=== PATIENT | female | born 1950 | race Caucasian/White ===

== ENCOUNTER 2016-03-14 18:51 | Inpatient (IN) ==
[2016-03-14] MEDS ORDERED: NS 1,000 ML IV ONE (18:59)
[2016-03-14] MEDS ORDERED: ZOFRAN IV ONE (18:59)
[2016-03-14 19:23] LABS: MANUAL DIFF NEEDED? NO
[2016-03-14 19:26] LABS: BASO% 0.4 % (0.0-0.8); EOS# 0.11 X1000 (0.0-0.7); EOS% 0.8 % (0.0-10.0); HEMATOCRIT 39.8 % (37.0-47.0); IMM GRAN# 0.05 X1000 (0.0-0.04); IMM GRAN% 0.4 % (0.0-0.5); LYMPH# 2.64 X1000 (1.2-3.4); LYMPH% 18.7 % (20.5-51.1); MCH 29.4 PG (27-31); MCHC 35.2 g/dL (33-37); MCV 83.4 FL (81-99); MONO# 0.67 X1000 (0.11-0.59); MONO% 4.8 % (1.7-9.3); MPV 11.5 FL (7.4-10.4); NEUT% 74.9 % (42.2-75.2); PLT 361 X1000 (130-400); RBC 4.77 XMIL (4.2-5.4)
[2016-03-14] MEDS ORDERED: NS 1,200 ML IV ONE (19:53)
[2016-03-14] MEDS ORDERED: INVANZ 1 GM/NS 50 ML IV ONE (19:54)
--- NOTE | 2016-03-14 19:57 | PROVIDER DOCUMENTATION ---
HPI-Fever - General Source: patient - History of Present Illness-Fever Fever Severity/Quality: reports: no fever Onset/Duration: reports: this morning Timing: reports: still present Severity: reports: severe Context: reports: none Cognitive Baseline: alert, oriented x3 Associated Symptoms: reports: diarrhea, nausea, vomiting - Glascow Coma Score Best Eye Response (Rik): (4) open spontaneously Best Verbal Response (Rik): (5) oriented Best Motor Response (Rik): (6) obeys commands [place] Total: 15 <Louisa Lopez - Last Filed: 03/15/16 00:17> <Vineet Webb - Last Filed: 03/15/16 00:20> - General Chief Complaint: N/V/D Stated Complaint: epigastric pain w n/v Time Seen by Provider: 03/14/16 18:55 Allergies/Adverse Reactions: Patient Allergies Allergy/AdvReac Type Severity Reaction Status Date / Time cyclobenzaprine HCl * Allergy Mild NAUSEA Verified 09/02/15 07:52 [From Flexeril] morphine Allergy Mild VOMITING Verified 09/02/15 07:52 Home Medications: Oxycodone HCl/Acetaminophen [Percocet 7.5-325 mg Tablet] 1 each PO 4XDAY PRN PRN 07/21/14 Ergocalciferol (Vitamin D2) [Vitamin D] 1 each PO DIRECTED 09/02/15 Furosemide [Lasix] 20 mg PO DAILY 09/02/15 Gemfibrozil [Lopid] 600 mg PO BID 09/02/15 Glyburide 5 mg PO DAILY 09/02/15 Insulin Lispro [Humalog] 20 unit SQ TID AC 09/02/15 Linagliptin [Tradjenta] 5 mg PO DAILY 09/02/15 Metoprolol [Lopressor] 25 mg PO DAILY 09/02/15 [place]-3 Acid Ethyl Esters [Lovaza] 2 each PO BID 09/02/15 SIMVAstatin [Zocor] 40 mg PO QHS 09/02/15 Insulin Glargine [Lantus] 20 unit SUBQ QAM 09/24/15 - History of Present Illness-Fever Nature of Presenting Problem: 65 Y/O F presents to ED with N/V/D. Pt states she has a history of abdominal problems, Pt states she's been having this abdominal pain for 2 wks and has worsen today. Vomiting began this evening, and Pt states she took Miralax this evening, but she does take it everyday due to constipation. Pt stated that she had a hysterectomy, and removed her gallbladder, and her last meal was an ensure this morning. (Louisa Lopez) Review of Systems - Adult - REVIEW OF SYSTEMS - ADULT Constitutional: denies: chills, fever Eyes: reports: no symptoms reported Ears, Nose, Mouth & Throat: reports: no symptoms reported Cardiovascular: reports: no symptoms reported Respiratory: reports: no symptoms reported Gastrointestinal: reports: abdominal pain, diarrhea, nausea, vomiting Genitourinary: reports: no symptoms reported Musculoskeletal: reports: no symptoms reported Integumentary: reports: no symptoms reported Neurological: reports: no symptoms reported Psychiatric: reports: no symptoms reported Endocrine: reports: no symptoms reported Hematologic/Lymphatic: reports: no symptoms reported Allergic/Immunologic: reports: no symptoms reported All Other Systems: Reviewed and Negative <Louisa Lopez - Last Filed: 03/15/16 00:17> Past History - Adult - PAST MEDICAL HISTORY-ADULT Review of Records: reports: Old Records Reviewed, Nursing Assessment Review, Medications Reviewed, Social history reviewed & non-contributory. Major Childhood Illnesses: reports: denies history Cardiovascular: reports: HTN, hyperlipidemia Respiratory: reports: denies history Gastrointestinal: reports: denies history Obstetrical/Gynecological: reports: denies history Genitourinary: reports: kidney disease Musculoskeletal: reports: chronic pain Neurological: reports: denies history Psychiatric: reports: denies history Endocrine/Immune: reports: Diabetes Other Conditions: reports: denies history - PRIOR SURGERIES/PROCEDURES Surgical/Procedure History: reports: appendectomy, cholecystectomy, hysterectomy , orthopedic (extremity) - PRIOR HOSPITALIZATIONS Prior Hospitalizations: reports: for similar symptoms - IMMUNIZATION STATUS Childhood Immunizations: See Nurse Assessment Flu Vaccine: See Nurse Assessment - FAMILY HISTORY Family History: reviewed, not pertinent - SOCIAL HISTORY Smoking: non-smoker Substance Use: none/never Alcohol Use Frequency: never Living Situation: family <Louisa Lopez - Last Filed: 03/15/16 00:17> Physical Exam-General - PHYSICAL EXAM-ADULT Initial Vital Signs Reviewed: Yes - CONSTITUTIONAL General Appearance: alert, moderate distress. negative: appears well - EYES Eyes: PERRL/EOMI, pink conjunctivae - HEAD, EARS, NOSE, MOUTH & THROAT HENMT: normocephalic/atraumatic, normal ENT inspection. negative: moist mucous membranes - NECK Neck: non-tender, full range of motion, normal inspection - RESPIRATORY Respiratory: chest non-tender, lungs clear, normal breath sounds - CARDIOVASCULAR Cardiovascular: normal peripheral pulses, no edema, tachycardia - GASTROINTESTINAL (ABDOMEN) Abdominal Exam: normal bowel sounds, soft, tenderness (diffused). negative: guarding, rebound - LYMPHATIC Lymphatic: no adenopathy - MUSCULOSKELETAL Back Exam: normal inspection, no CVA tenderness, no vertebral tenderness Extremity: normal range of motion, non-tender, normal gait - SKIN Integumentary: normal color, normal turgor, warm/dry - NEUROLOGIC Neurologic: grossly normal, no motor/sensory deficits - PSYCHIATRIC Psych/Mental Status: oriented x 3, anxious, disheveled <Louisa Lopez - Last Filed: 03/15/16 00:17> Progress - CT/MRI 1 CT Study: Abdomen Impression: Abnormal (Prominent liver which displaces right kidney inferiorly, no bowel obstruction, extensive diverticulosis at descending and sigmoid colon, no evidence of diverticulitis, no abscess, no free air.) - CONSULTS/PCP/HOSPITALIST Notification #1 *Consult/PCP/Hospitalist*: Time Discussed: 00:17 Reason/Comments: Admittance Consult Disposition: Admit (Admit Accepted) <Louisa Lopez - Last Filed: 03/15/16 00:17> - CONSULTS/PCP/HOSPITALIST Notification #1 *Consult/PCP/Hospitalist*: Dr. H[facility] Time Discussed: 00:20 Consult Disposition: Admit <Vineet Webb - Last Filed: 03/15/16 00:20> - PLAN OF CARE/RESULTS Progress/Plan/Lab Results: On original examination, Pt stated that she did not want to be examined, to go away. Laboratory Tests 03/14/16 03/14/16 03/14/16 19:14 19:14 19:14 WBC 14.10 H RBC 4.77 Hgb 14.0 Hct 39.8 MCV 83.4 MCH 29.4 MCHC 35.2 RDW Std Deviation 12.8 Plt Count 361 MPV 11.5 H Immature Gran % (Auto) 0.4 Neut % (Auto) 74.9 Lymph % (Auto) 18.7 L [place] % (Auto) 4.8 Eos % (Auto) 0.8 Baso % (Auto) 0.4 Immature Gran # (Auto) 0.05 H Neut # 10.58 H Lymph # 2.64 [place] # 0.67 H Eos # 0.11 Baso # 0.05 PT INR APTT (Factor Assay) Sodium 136 Potassium 3.5 Chloride 94 L Carbon Dioxide 27 Anion Gap 16 BUN 16 Creatinine 0.7 Estimated GFR/1.73 m2 > 60 BUN/Creatinine Ratio 23 Glucose 325 H Calculated Osmolality 286 Calcium 10.3 H Total Bilirubin 0.50 AST 17 ALT 18 Alkaline Phosphatase 119 H Creatine Kinase Troponin T < 0.010 Total Protein 8.2 Albumin 4.7 Globulin 4.0 Albumin/Globulin Ratio 1.0 Lipase 24 Plasma Lactate Urine Source Urine Color Urine Clarity Urine pH Ur Specific [place] Urine Protein Urine Ketones Urine Blood Urine Nitrite Urine Bilirubin Urine Urobilinogen Urine Microscopic RBC Urine WBC Urine Microscopic WBC Ur Epithelial Cells Urine Crystals Urine Bacteria Urine Casts Urine Yeast Urine Glucose Urine Test 03/14/16 03/14/16 03/14/16 19:14 19:14 19:14 WBC RBC Hgb Hct MCV MCH MCHC RDW Std Deviation Plt Count MPV Immature Gran % (Auto) Neut % (Auto) Lymph % (Auto) [place] % (Auto) Eos % (Auto) Baso % (Auto) Immature Gran # (Auto) Neut # Lymph # [place] # Eos # Baso # PT 13.1 INR 0.96 APTT (Factor Assay) 25.7 Sodium Potassium Chloride Carbon Dioxide Anion Gap BUN Creatinine Estimated GFR/1.73 m2 BUN/Creatinine Ratio Glucose Calculated Osmolality Calcium Total Bilirubin AST ALT Alkaline Phosphatase Creatine Kinase 43 Troponin T Total Protein Albumin Globulin Albumin/Globulin Ratio Lipase Plasma Lactate 3.6 H Urine Source Urine Color Urine Clarity Urine pH Ur Specific [place] Urine Protein Urine Ketones Urine Blood Urine Nitrite Urine Bilirubin Urine Urobilinogen Urine Microscopic RBC Urine WBC Urine Microscopic WBC Ur Epithelial Cells Urine Crystals Urine Bacteria Urine Casts Urine Yeast Urine Glucose Urine Test 03/14/16 03/14/16 20:40 20:40 WBC RBC Hgb Hct MCV MCH MCHC RDW Std Deviation Plt Count MPV Immature Gran % (Auto) Neut % (Auto) Lymph % (Auto) [place] % (Auto) Eos % (Auto) Baso % (Auto) Immature Gran # (Auto) Neut # Lymph # [place] # Eos # Baso # PT INR APTT (Factor Assay) Sodium Potassium Chloride Carbon Dioxide Anion Gap BUN Creatinine Estimated GFR/1.73 m2 BUN/Creatinine Ratio Glucose Calculated Osmolality Calcium Total Bilirubin AST ALT Alkaline Phosphatase Creatine Kinase Troponin T Total Protein Albumin Globulin Albumin/Globulin Ratio Lipase Plasma Lactate Urine Source CATH Urine Color YELLOW Urine Clarity CLEAR Urine pH 7.0 Ur Specific [place] 1.005 Urine Protein 2+(100 mg/dL) A Urine Ketones TRACE Urine Blood NEGATIVE Urine Nitrite NEGATIVE Urine Bilirubin NEGATIVE Urine Urobilinogen NORMAL Urine Microscopic RBC Not Reportable Urine WBC NEGATIVE Urine Microscopic WBC <10 Ur Epithelial Cells <10 Urine Crystals NONE SEEN Urine Bacteria NEGATIVE Urine Casts NONE SEEN Urine Yeast NONE SEEN Urine Glucose 3+(500 mg/dL) A Urine Test NEGATIVE Orders Category Date Time Status Cardiac Monitoring DIRECTED Care 03/14/16 19:01 Active Saline Loc DIRECTED Care 03/14/16 18:59 Active NPO Diet 03/14/16 18:[address] ABD/PELVIS W/ IV CONT ONLY [CT] Stat Exams 03/14/16 19:53 Taken acute [FLAT/UPRIGHT ABD/1 VIEW CHEST] [RAD] Stat Exams 03/14/16 19:00 Taken BLOOD CULTURE [BLDCUL] Stat Lab 03/14/16 21:11 Or[address] C DIFF TOXIN PL Stat Lab 03/14/16 22:42 Ordered CBC WITH ELECTRONIC DIFF [HEME] Stat Lab 03/14/16 19:14 Completed CK PROFILE [SP CHEM] Stat Lab 03/14/16 19:14 Completed COMPREHENSIVE METABOLIC PANEL [CHEM] Stat Lab 03/14/16 19:14 Completed LACTATE, PLASMA [CHEM] Stat Lab 03/14/16 19:14 Completed LIPASE [CHEM] Stat Lab 03/14/16 19:14 Completed TEST-URINE [PREG] Stat Lab 03/14/16 20:40 Completed PROTIME WITH INR PL [COAG] Stat Lab 03/14/16 19:[address] [COAG] Stat Lab 03/14/16 19:14 Completed TROPONIN T Stat Lab 03/14/16 19:[address] W/POSS RFLX CULT [URINALYSIS] Stat Lab 03/14/16 20:40 Completed 0.9% Sodium Chloride Inj [Ns] 1,000 ml Med 03/14/16 18:59 Discontinued IV 999 mls/hr 0.9% Sodium Chloride Inj [Ns] 1,200 ml Med 03/14/16 19:53 Discontinued IV 999 mls/hr 0.9% Sodium Chloride Inj [Ns] 50 ml Med 03/14/16 20:11 Discontinued .ROUTE As Directed Ertapenem 1 gm/Ns [Invanz 1 gm/Ns] 50 ml Med 03/14/16 19:54 Discontinued IV NOW Ertapenem [Invanz] Med 03/14/16 20:09 Discontinued 1 gm .ROUTE .STK-MED ONE Hydromorphone [Dilaudid] Med 03/14/16 21:36 Discontinued 1 mg IV NOW ONE Hyoscyamine Subl [Levsin-Sl] Med 03/14/16 23:57 Discontinued 0.25 mg SL NOW ONE Meperidine [Demerol] Med 03/14/16 22:54 Discontinued 50 mg IV NOW ONE Ondansetron [Zofran] Med 03/14/16 18:59 Discontinued 4 mg IV NOW ONE Oxycodone/APAP 10 mg/325 mg [Percocet-10] Med 03/14/16 21:58 Discontinued 1 each PO NOW ONE Promethazine [Phenergan] Med 03/15/16 00:13 Discontinued 12.5 mg IV NOW ONE Sodium Chloride 0.9% Med 03/15/16 00:13 Discontinued 10 ml INJ NOW ONE Oxygen Device Stat Oth 03/14/16 19:55 Active EKG [EKG] Stat Ther 03/14/16 18:40 Ordered Vital Signs - 24 hr 03/14/16 03/14/16 03/14/16 18:52 21:13 21:18 Temperature 97.8 F Pulse Rate 119 H 115 H Respiratory 20 14 Rate Blood Pressure 190/90 219/109 O2 Sat by Pulse 100 96 Oximetry (Louisa Lopez) Departure - Departure Time of Disposition Order: 22:42 Certified Medical Emergency: Emergent <Louisa Lopez - Last Filed: 03/15/16 00:17> - Departure Certified Medical Emergency: Emergent <Vineet Webb - Last Filed: 03/15/16 00:20> - Departure DIAGNOSIS: Dehydration, Lactic acidosis Nausea & vomiting Qualifiers: Vomiting type: unspecified Vomiting Intractability: intractable Qualified Code( s): R11.2 - Nausea with vomiting, unspecified Abdominal pain Qualifiers: Abdominal location: generalized Qualified Code(s): R10.84 - Generalized abdominal pain Disposition: ADMITTED INPATIENT 09 Condition: Stable Referrals: JANET WRIGHT CRNP [Primary Care Provider] - Attestation - Scribe Verification/Attestation Scribe:: Louisa Lopez Acting as Scribe for:: Vineet Webb Scribe documention review:: This chart was documented by a scribe and accurately reflects the service the provider performed and the decisions made by the provider. <Louisa Lopez - Last Filed: 03/15/16 00:17> Physician Attestation
[2016-03-14 19:59] LABS: AGAP 16; ALBUMIN 4.7 g/dL (3.5-5.0); ALKALINE PHOSPHATASE 119 U/L (32-104); BUN 16 mg/dL (8-22); CALCIUM 10.3 mg/dL (8.8-10.2); CHLORIDE 94 mmol/L (98-107); COSMO 286; GOT 17 U/L (10-30); GPT 18 U/L (10-36); LIPASE 24 U/L (13-60); POTASSIUM 3.5 mmol/L (3.5-5.1); SODIUM 136 mmol/L (136-145); TCO2 27 mmol/L (25-35); TOTAL PROTEIN 8.2 g/dL (6.3-8.3)
[2016-03-14] MEDS ORDERED: INVANZ ONE (20:09)
[2016-03-14] MEDS ORDERED: NS 50 ML ONE (20:11)
[2016-03-14 20:57] LABS: URINE CULTURE PL NEEDED? NO; URINE SOURCE CATH
[2016-03-14 21:15] LABS: COLOR YELLOW
[2016-03-14 21:16] LABS: BILIRUBIN URINE NEGATIVE (NEGATIVE); BLOOD URINE NEGATIVE (NEGATIVE); CLARITY CLEAR (CLEAR); LEUKOCYTES URINE NEGATIVE (NEGATIVE); NITRITE URINE NEGATIVE (NEGATIVE); PROTEIN URINE 2+(100 mg/dL) mg/dL (NEGATIVE); SP GRAVITY URINE 1.005; UROBILINOGEN URINE NORMAL
[2016-03-14 21:17] LABS: URINE EPITHELIAL CELLS <10 /HPF (<10); URINE WBC <10 /HPF (<10)
[2016-03-14 21:18] LABS: URINE CAST NONE SEEN /LPF; URINE CRYSTAL NONE SEEN /HPF
[2016-03-14 21:24] LABS: INR 0.96 (0.86-1.15); PROTIME 13.1 Seconds (12.1-15.5)
[2016-03-14 21:25] LABS: PTT PL 25.7 Seconds (22.6-43.9)
[2016-03-14] MEDS ORDERED: DILAUDID IV ONE (21:36)
[2016-03-14] MEDS ORDERED: PERCOCET-10 PO ONE (21:58)
[2016-03-14] MEDS ORDERED: DEMEROL IV ONE (22:54)
[2016-03-14] MEDS ORDERED: LEVSIN-SL SL ONE (23:57)
[2016-03-15] MEDS ORDERED: SODIUM CHLORIDE 0.9% INJ ONE ×2 (00:13→01:55)
[2016-03-15] MEDS ORDERED: PHENERGAN IV ONE (00:13)
[2016-03-15] MEDS ORDERED: PERCOCET-5 PO PRN (01:21)
[2016-03-15] MEDS ORDERED: PROTONIX IV ONE (01:55)
[2016-03-15] MEDS: ZOFRAN IV PRN ×4 (02:03→16:17)
[2016-03-15] MEDS: NS 1,000 ML IV SCH ×3 (02:05→21:07)
--- NOTE | 2016-03-15 03:22 | EKG Report ---
Test Performed on : 03/14/2016 6:46:11 PM Test Reason : ER7 Blood Pressure : / mmHG Vent. Rate : 111 BPM Atrial Rate : 111 BPM P-R Int : 182 ms QRS Dur : 074 ms QT Int : 360 ms P-R-T Axes : 054 042 058 degrees QTc Int : 489 ms Sinus tachycardia. Otherwise normal ECG No previous ECGs available Unconfirmed Result
[2016-03-15] MEDS: APRESOLINE IV PRN (05:21)
[2016-03-15] MEDS: SODIUM CHLORIDE 0.9% INJ PRN (05:21)
[2016-03-15] MEDS: PHENERGAN IV PRN ×5 (05:21→21:07)
[2016-03-15] MEDS: DEMEROL IV PRN ×6 (05:21→22:33)
--- NOTE | 2016-03-15 08:19 | Diag Imaging Result Document ---
PROCEDURE NAME: CT ABD/PELVIS W/ IV CONT ONLY - 03/14/2016 CT ABDOMEN AND PELVIS WITH INTRAVENOUS CONTRAST: A CT dose reduction protocol was used. COMPARISON: 10/11/2015. FINDINGS: The lung bases are clear and the heart size is normal. Stable left renal stone. Stable cyst at the anterior pole of the spleen. Stable cholecystectomy clips. Stable surgical changes throughout the spine. Stable diverticulosis of the descending and sigmoid colon. No bowel obstruction or inflammation. There has been significant change in configuration of the right kidney, this is now horizontally oriented as compared to previous. No evidence of hydronephrosis or vascular compromise. Uterus is absent. Urinary bladder and rectum are normal. No acute bony lesions. IMPRESSION: 1. Significant change in orientation of the right kidney, with no evidence of complication. This indicates nephroptosis is present. If the patient's symptoms may be referable to this location, then urologic referral is recommended. 2. Diverticulosis coli. [facility]
--- NOTE | 2016-03-15 08:24 | Diag Imaging Result Document ---
PROCEDURE NAME: FLAT/UPRIGHT ABD/1 VIEW CHEST - 03/14/2016 FRONTAL CHEST X-RAY AND 2 VIEWS OF THE ABDOMEN: COMPARISON: 10/11/2015. FINDINGS: The chest is clear. There is a lower cervical spine fusion plate. Stable fusion rods at the lumbar spine and cholecystectomy clips. Stable calcifications projecting over the left renal shadow suggesting left renal stones. No bowel obstruction or free air. There is dense material throughout the distal colon and rectum. There are probably diverticula. IMPRESSION: Diverticulosis coli. Left renal stone. No acute abnormality.
--- NOTE | 2016-03-15 17:10 | HISTORY AND PHYSICAL ---
CHIEF COMPLAINT: Diarrhea, nausea, vomiting, abdominal pain. HISTORY OF PRESENT ILLNESS: This is a 65-year-old female, who presented to the emergency room complaining of nausea, vomiting and diarrhea. She does state that she has a history of chronic abdominal pain as well as chronic constipation secondary to narcotic use. She states she has been having abdominal pain that has been intermittent off and on for the last 2 weeks, but that over the last 48 hours it has become worse. The pain is primarily in the right flank around to the right lower quadrant over to the umbilical area. She is tender to palpation. She does not really have any left abdominal pain. She is on chronic narcotics. She is seen by Dr. Sinclair for pain management. She has recently been changed to Percocet after failing Dilaudid due to a reaction, although she does not remember what kind of reaction she had. Prior to coming to the emergency room, she thinks it had been between 24 and 48 hours that she had held down her last dose of Percocet. She was noted to have a white count of 14.1. She was afebrile. CT of the abdomen and pelvis revealed a stable left renal stone, stable cyst anterior pole of the spleen. Stable diverticulosis with nephroptosis of the right kidney being horizontal, as compared to a 10/11/2015 scan. There is no evidence of hydronephrosis or vascular compromise. She is being admitted for further evaluation and treatment. PAST MEDICAL HISTORY: Type 2 diabetes, hypertension, renal disease, chronic pain. PAST SURGICAL HISTORY: Appendectomy, cholecystectomy, hysterectomy. Six or 7 back fusions. Bladder surgery. SOCIAL HISTORY: She denies alcohol, tobacco, or illicit drug use. ALLERGIES: Flexeril, Dilaudid and morphine. HOME MEDICATIONS: Lyrica 75 mg b.i.d., methocarbamol 750 q.4 hours p.r.n., trazodone 1-2 tabs at bedtime p.r.n. Allopurinol 300 daily. Zanaflex 4 mg b.i.d. p.r.n., Paxil 30 mg daily. Hydroxyzine 1-2 tabs at bedtime p.r.n., niacin 500 mg at bedtime, Movantik 25 mg daily, Lopid 600 b.i.d., Tradjenta 5 daily, Prilosec 40 daily, Zocor 40 at bedtime. REVIEW OF SYSTEMS: A 14-point review of systems is discussed with the patient with pertinent positives being right flank pain, right-sided abdominal pain, right lower quadrant pain, vomiting, nausea. She denies chest pain, palpitations, syncope, dizziness, cough, fever, chills, runny nose, hematemesis, black or bloody stools, hematuria, dysuria, frequency, urgency. PHYSICAL EXAMINATION: GENERAL: This is a 65-year-old female, lying in the bed in mild distress. CARDIOVASCULAR: Regular rate and rhythm. S1 and S2 appreciated. PULMONARY: Breath sounds are clear. No increased work of breathing noted. GASTROINTESTINAL: Abdomen is soft with diffuse tenderness to the right upper and lower quadrants and umbilical quadrant. Bowel sounds are present. BACK: Positive CVAT on the right. No left CVAT. SKIN: Warm and dry with no rashes or lesions noted. EXTREMITIES: No clubbing, cyanosis, or edema. Pulses are palpable x4. Calves are nontender. DIAGNOSTIC STUDIES: CT of the abdomen reveals nephroptosis on the right as compared to September scan. WBC is 14.1, with a hemoglobin of 14 and hematocrit 39.8, platelets of 361. INR 0.96. Sodium 136, potassium 3.5, BUN 16, creatinine 0.7 with a glucose of 325. Troponin is less than 0.010 with lipase of 24. Blood cultures x2 are pending. ASSESSMENT: 1. Nausea and vomiting. 2. Right flank, right side abdominal pain. 3. Leukocytosis. 4. Nephroptosis on the right. 5. Diabetes mellitus. 6. Hypertension. 7. Chronic pain disorder. PLAN: Patient will be admitted to the hospital. She will remain n.p.o. We will give IV hydration as well as IV pain and nausea control. We will trend labs. We will consult urology with Dr. Jeter who is personal care aid. We will obtain patient's records. The patient is on chronic opiates. She did state this has probably been about 24 hours since she held down a pain pill, but she has been receiving Demerol q.4 hours since admission so I do not believe that withdrawal is a component of this. We will give IV Protonix. We will trend pattern blood glucose with sliding scale insulin. Further treatments pending hospital course. Dictated by AMISHA Salazar for Charles Hare MD
[2016-03-15 17:30] LABS: MANUAL DIFF NEEDED? NO
[2016-03-15 17:31] LABS: BASO% 0.1 % (0.0-0.8); HEMATOCRIT 36.5 % (37.0-47.0); HEMOGLOBIN 12.9 g/dL (12.0-16.0); IMM GRAN# 0.03 X1000 (0.0-0.04); IMM GRAN% 0.2 % (0.0-0.5); LYMPH# 1.34 X1000 (1.2-3.4); LYMPH% 8.6 % (20.5-51.1); MCH 29.5 PG (27-31); MCHC 35.3 g/dL (33-37); MCV 83.5 FL (81-99); MONO# 1.09 X1000 (0.11-0.59); MPV 11.1 FL (7.4-10.4); NEUT% 84.1 % (42.2-75.2); PLT 328 X1000 (130-400); RBC 4.37 XMIL (4.2-5.4)
[2016-03-15] MEDS: ZOSYN 3.375 GM/NS 50 ML IV SCH ×3 (17:39→23:00)
[2016-03-15] MEDS: PROTONIX IV SCH (17:40)
[2016-03-15 17:58] LABS: AGAP 13; ALBUMIN 4.6 g/dL (3.5-5.0); ALKALINE PHOSPHATASE 108 U/L (32-104); BUN 14 mg/dL (8-22); CALCIUM 9.4 mg/dL (8.8-10.2); CHLORIDE 100 mmol/L (98-107); COSMO 291; GOT 15 U/L (10-30); GPT 16 U/L (10-36); POTASSIUM 3.2 mmol/L (3.5-5.1); SODIUM 142 mmol/L (136-145); TCO2 29 mmol/L (25-35); TOTAL PROTEIN 8.1 g/dL (6.3-8.3)
[2016-03-15] MEDS: HUMULIN R (PARKWAY) SUBQ SCH (21:08)
[2016-03-15] MEDS: AMBIEN PO PRN (22:33)
[2016-03-16] MEDS: NS 1,000 ML IV SCH ×5 (01:19→21:13)
[2016-03-16] MEDS: PHENERGAN IV PRN ×5 (03:21→21:11)
[2016-03-16] MEDS: DEMEROL IV PRN ×5 (03:21→21:12)
[2016-03-16] MEDS: SODIUM CHLORIDE 0.9% INJ SCH ×2 (03:21→21:13)
[2016-03-16] MEDS: ZOSYN 3.375 GM/NS 50 ML IV SCH ×5 (04:26→23:25)
[2016-03-16] MEDS: HUMULIN R (PARKWAY) SUBQ SCH ×4 (06:02→21:13)
[2016-03-16 06:05] LABS: HEMATOCRIT 35.3 % (37.0-47.0); MCH 28.7 PG (27-31); MCV 84.4 FL (81-99); MPV 11.3 FL (7.4-10.4); RBC 4.18 XMIL (4.2-5.4)
[2016-03-16] MEDS: ZOFRAN IV PRN ×3 (06:06→19:15)
[2016-03-16] MEDS: TORADOL IV PRN ×2 (06:06→14:29)
[2016-03-16 06:19] LABS: AGAP 9; BUN 15 mg/dL (8-22); CALCIUM 9.1 mg/dL (8.8-10.2); CHLORIDE 102 mmol/L (98-107); COSMO 288; POTASSIUM 2.8 mmol/L (3.5-5.1); SODIUM 141 mmol/L (136-145); TCO2 30 mmol/L (25-35)
[2016-03-16] MEDS: APRESOLINE IV PRN ×2 (07:41→17:01)
[2016-03-16 11:06] LABS: MAGNESIUM 1.1 mg/dL (1.5-2.7)
--- NOTE | 2016-03-16 11:08 | PROGRESS NOTE ---
DATE: 03/16/2016 SUBJECTIVE: The patient is asleep at present. She is resting quietly. She has continued to have nausea. Vomiting small amounts of bile-colored secretions. OBJECTIVE: Vital Signs: Blood pressure 206/99 with heart rate of 98. Respirations are 18. Temperature is 98.4 degrees with room air saturation of 100%. Cardiovascular: Regular rate and rhythm. S1 and S2 appreciated. Pulmonary: Breath sounds are clear. No increased work of breathing noted. Gastrointestinal: Abdomen is soft with diffuse tenderness with bowel sounds present. Extremities: No clubbing, cyanosis, or edema. Pulses are palpable x4. LABORATORY AND X-RAY DATA: WBC is 13.3 with a hemoglobin of 12, hematocrit 35.3 , and platelets of 288,000. Sodium is 141. Potassium 2.8. BUN 15. Creatinine 0.7 with blood sugars ranging 180 to 230. CTA angiogram mesenteric artery is pending radiology read. ASSESSMENT AND PLAN: 1. Nausea and vomiting. 2. Right flank pain, abdominal pain. 3. Leukocytosis. 4. Hypokalemia. 5. Diabetes mellitus. 6. Hypertension. 7. Chronic pain. 8. Nephroptosis on the right. We will continue with her current regimen. She will remain NPO. We will continue with the current pain and nausea medications. We will obtain a reading on the mesenteric CT scan. We will continue Zosyn for antibiotic coverage. Protonix for GI coverage and. Dictated by AMISHA Salazar for Charles Hare MD due to persistent n/v; will transfer [facility], start regaln, ischemic gut has been ruled out, I am suspicious of a psychiatric component, but pt did have lactic acidosis on admission [facility]
[2016-03-16] MEDS: POTASSIUM CHLORIDE 20 MEQ/SWI 100 ML IV SCH ×3 (12:00→15:10)
[2016-03-16] MEDS ORDERED: MAGNESIUM SULFATE 2 GM/S.W.I. 50 ML IV ONE (16:20)
[2016-03-16] MEDS: SODIUM CHLORIDE 0.9% INJ PRN (17:01)
[2016-03-16] MEDS: PROTONIX IV SCH (17:07)
[2016-03-16] MEDS: REGLAN IV SCH (17:08)
--- NOTE | 2016-03-16 17:26 | Diag Imaging Result Document ---
PROCEDURE NAME: ANGIOGRAM/MESENTERIC ARTERY - 03/15/2016 CT OF THE ABDOMEN WITH INTRAVENOUS CONTRAST AND CT MESENTERIC ANGIOGRAPHY WITH 3D MIPs: COMPARISON: The current study is compared with that of 03/14/2016. FINDINGS: The lungs are not as well expanded as on the previous study. Compared to the previous examination, the orientation of the right kidney is more vertical. It is possible that this is a function of the stage of inspiration at which the study was performed. The study of 03/14/2016 was performed at a much deeper inspiration. The renal vessels are widely patent. The celiac and superior mesenteric arteries are also widely patent. The inferior mesenteric artery is patent. There is a Johnson catheter in the bladder, which is not distended and contains air bubbles within it. There are numerous fecaliths and diverticula in the sigmoid colon. There is no evidence of appendicitis or bowel obstruction. No abnormal fluid collections are present. IMPRESSION: No significant arterial abnormality. The change in orientation of the right kidney is apparently a function of the depth of inspiration. This would be consistent with nephroptosis, but the clinical significance is unclear.
[2016-03-16] MEDS: POTASSIUM PHOSPHATE 40 MEQ in NS 250 ML IV ONE (21:00)
[2016-03-17] MEDS: DEMEROL IV PRN ×4 (00:50→18:19)
[2016-03-17] MEDS: POTASSIUM PHOSPHATE 40 MEQ in NS 250 ML IV ONE (00:50)
[2016-03-17] MEDS: NS 1,000 ML IV SCH ×2 (00:50→09:07)
[2016-03-17] MEDS: PHENERGAN IV PRN ×4 (00:51→18:19)
[2016-03-17] MEDS: SODIUM CHLORIDE 0.9% INJ SCH ×2 (00:51→05:27)
[2016-03-17] MEDS: REGLAN IV SCH ×4 (00:51→23:56)
[2016-03-17] MEDS: TORADOL IV PRN (05:27)
[2016-03-17] MEDS: ZOSYN 3.375 GM/NS 50 ML IV SCH ×3 (05:27→16:52)
[2016-03-17] MEDS: HUMULIN R (PARKWAY) SUBQ SCH ×4 (06:17→20:31)
[2016-03-17 07:04] LABS: HEMATOCRIT 33.1 % (37.0-47.0); MCH 28.5 PG (27-31); MCHC 33.2 g/dL (33-37); MCV 85.8 FL (81-99); MPV 11.2 FL (7.4-10.4); RBC 3.86 XMIL (4.2-5.4)
[2016-03-17 07:24] LABS: AGAP 9; ALBUMIN 3.7 g/dL (3.5-5.0); ALKALINE PHOSPHATASE 79 U/L (32-104); BUN 18 mg/dL (8-22); CALCIUM 8.6 mg/dL (8.8-10.2); CHLORIDE 103 mmol/L (98-107); COSMO 284; GOT 27 U/L (10-30); GPT 19 U/L (10-36); MAGNESIUM 2.1 mg/dL (1.5-2.7); SODIUM 140 mmol/L (136-145); TCO2 28 mmol/L (25-35); TOTAL PROTEIN 6.5 g/dL (6.3-8.3)
[2016-03-17] MEDS ORDERED: G.I. COCKTAIL PO ONE (12:26)
[2016-03-17] MEDS: CARAFATE LIQUID PO SCH ×2 (14:39→20:31)
[2016-03-17] MEDS: PROTONIX IV SCH (15:56)
--- NOTE | 2016-03-17 17:37 | PROGRESS NOTE ---
DATE: 03/17/2016 SUBJECTIVE: The patient is asleep resting quietly although upon waking she starts crying and asking for pain medication. She has had no further vomiting. OBJECTIVE: Vital Signs: Blood pressure is 167/81 with a heart rate of 77, respirations are 18, temperature is 98.6 degrees oral with a room air saturation of 96%. Cardiovascular: Regular rate and rhythm S1, S2 appreciated. Pulmonary: Breath sounds are clear. No increased work of breathing noted. Gastrointestinal: Abdomen is soft with no tenderness on deep palpation while she is asleep but when she is awake she complains of tenderness with any palpation. Extremities: No clubbing, cyanosis, or edema. Pulses are palpable x4. LABS: WBC is 10.2 with hemoglobin 11, hematocrit 33.1 and platelets 284,000. Sodium is 140, potassium 3, BUN 18, creatinine 0.8, with blood sugars ranging 140s to 200. Mesenteric arteriogram revealed no significant arterial abnormality with change in orientation the right kidney is a function of depth of inspiration consistent with nephroptosis. Microbiology. Blood cultures and urine culture revealed no growth. PROBLEM LIST: 1. Nausea and vomiting. 2. Right flank pain, abdominal pain. 3. Leukocytosis resolving. 4. Hypokalemia. 5. Diabetes mellitus. 6. Hypertension. 7. Chronic pain. 8. Nephroptosis on the right. We will continue with her current regimen. Her diet will be increased to full liquids. The patient was given a GI cocktail. Her pain did improve shortly after taking this. Will start Carafate liquid q.6 hours and will order a GI cocktail every 6 hours p.r.n. for 24 hours and will monitor her pain. We will work on her getting up out of the bed. Dictated by AMISHA Salazar for Charles Hare MD
[2016-03-17] MEDS ORDERED: NS 1,000 ML IV SCH (17:41)
[2016-03-17] MEDS: POTASSIUM CHLORIDE 20 MEQ/SWI 100 ML IV SCH ×2 (18:20→20:30)
[2016-03-17] MEDS: G.I. COCKTAIL PO PRN (20:31)
[2016-03-17] MEDS: AMBIEN PO PRN (20:35)
[2016-03-18] MEDS: PHENERGAN IV PRN ×3 (02:28→14:51)
[2016-03-18] MEDS: SODIUM CHLORIDE 0.9% INJ PRN ×2 (02:28→06:39)
[2016-03-18] MEDS: DEMEROL IV PRN ×3 (02:28→23:03)
[2016-03-18] MEDS: CARAFATE LIQUID PO SCH ×3 (02:33→14:51)
[2016-03-18] MEDS: G.I. COCKTAIL PO PRN ×2 (05:18→15:29)
[2016-03-18] MEDS: HUMULIN R (PARKWAY) SUBQ SCH ×3 (06:38→16:57)
[2016-03-18 06:55] LABS: HEMATOCRIT 36.3 % (37.0-47.0); HEMOGLOBIN 12.6 g/dL (12.0-16.0); MCH 29.2 PG (27-31); MCHC 34.7 g/dL (33-37); MPV 10.8 FL (7.4-10.4); RBC 4.32 XMIL (4.2-5.4)
[2016-03-18 07:18] LABS: AGAP 12; BUN 16 mg/dL (8-22); CALCIUM 9.1 mg/dL (8.8-10.2); CHLORIDE 100 mmol/L (98-107); COSMO 279; POTASSIUM 3.2 mmol/L (3.5-5.1); SODIUM 137 mmol/L (136-145); TCO2 25 mmol/L (25-35)
[2016-03-18] MEDS: REGLAN IV SCH ×2 (08:00→15:47)
[2016-03-18] MEDS: TORADOL IV PRN ×2 (08:11→14:51)
--- NOTE | 2016-03-18 13:42 | PROGRESS NOTE ---
DATE: 03/18/2016 SUBJECTIVE: The patient has no complaining of abdominal pain, nausea, or vomiting. OBJECTIVE: Vital Signs: Blood pressure 186/79, heart rate of 89, respiratory rate 16, temperature 98.1 degrees, 97% on room air. Cardiovascular: Regular rate and rhythm. Pulmonary: Bilateral breath sounds. Clear to auscultation. GI: Soft, nontender, nondistended. Bowel sounds are positive. Extremities: No clubbing or cyanosis. Lymphatics: No peripheral edema. Neurological: Nonfocal. LABORATORY DATA: White count 10, hemoglobin and hematocrit 12 and 36, platelets of 286,000. Potassium 3.2. PROBLEM LIST: 1. Intractable nausea and vomiting without a clear source. At this point, I think she needs a GI opinion. Discussed the case with Would like to rule out gastroparesis, so we will pursue gastric emptying study in the morning. It is unavailable because of the holiday at this time. 2. Transfer to [facility] for further evaluation. May need EGD to evaluate for process. 3. Diabetes, appears to be well controlled. 4. Blood pressure, does not appear to be well controlled, and she is not tolerating her p.o. very well, so we will initiate some blood pressure medications and follow closely. 5. Diabetes. Will continue to monitor. DISPOSITION: Pending resolution of her clinical issues.
--- NOTE | 2016-03-18 13:48 | Diag Imaging Result Document ---
PROCEDURE NAME: HEAD W/O CONTRAST - 03/18/2016 CT OF THE HEAD WITHOUT CONTRAST: FINDINGS: There is no evidence of mass effect, bleed or abnormal extraaxial fluid collection. Compared to the previous study of 09/23/2015, there has been no significant change in the appearance of the brain. IMPRESSION: No evidence of acute intracranial disease. Chronic microvascular white matter changes.
[2016-03-18] MEDS ORDERED: VASOTEC IV SCH (14:00)
[2016-03-18] MEDS: POTASSIUM CHLORIDE 20 MEQ/SWI 100 ML IV SCH ×2 (14:51→17:30)
[2016-03-18] MEDS ORDERED: DEMEROL IV PRN (15:18)
[2016-03-18] MEDS: PROTONIX IV SCH (15:47)
[2016-03-18] MEDS: APRESOLINE IV PRN (16:58)
[2016-03-18] MEDS ORDERED: DEMEROL IV ONE (17:04)
[2016-03-18] MEDS ORDERED: DESYREL PO PRN (19:52)
[2016-03-18] MEDS ORDERED: ROBAXIN PO SCH (19:52)
[2016-03-18] MEDS ORDERED: NEURONTIN PO SCH (19:52)
[2016-03-18] MEDS ORDERED: G.I. COCKTAIL PO PRN (20:40)
[2016-03-18] MEDS ORDERED: TORADOL IV PRN (20:50)
[2016-03-18] MEDS ORDERED: LYRICA PO SCH (21:00)
[2016-03-18] MEDS: ROBAXIN PO SCH (22:42)
[2016-03-18] MEDS: AMBIEN PO PRN (22:43)
[2016-03-18] MEDS: LYRICA PO SCH (22:43)
[2016-03-18] MEDS: HUMULIN R SUBQ SCH (22:47)
[2016-03-18] MEDS: ZOFRAN IV PRN (23:01)
[2016-03-19] MEDS: ROBAXIN PO SCH ×6 (00:03→20:49)
[2016-03-19] MEDS: PHENERGAN IV PRN ×3 (00:05→20:48)
[2016-03-19] MEDS: CARAFATE LIQUID PO SCH ×4 (02:58→20:48)
[2016-03-19] MEDS: HUMULIN R SUBQ SCH ×4 (06:33→20:42)
[2016-03-19 06:44] LABS: HEMATOCRIT 31.3 % (37.0-47.0); HEMOGLOBIN 10.7 g/dL (12.0-16.0); MCH 29.3 PG (27-31); MCHC 34.2 g/dL (33-37); MCV 85.8 FL (81-99); MPV 10.6 FL (7.4-10.4); RBC 3.65 XMIL (4.2-5.4)
[2016-03-19] MEDS: MOVANTIK PO SCH (07:00)
[2016-03-19] MEDS: DEMEROL IV PRN ×3 (07:00→19:15)
[2016-03-19] MEDS ORDERED: MOVANTIK PO SCH (07:00)
[2016-03-19] MEDS: VASOTEC IV SCH ×2 (07:02→17:42)
[2016-03-19 07:16] LABS: AGAP 14; BUN 19 mg/dL (8-22); CALCIUM 8.8 mg/dL (8.8-10.2); CHLORIDE 100 mmol/L (98-107); COSMO 281; POTASSIUM 3.3 mmol/L (3.5-5.1); SODIUM 138 mmol/L (136-145); TCO2 24 mmol/L (25-35)
[2016-03-19] MEDS ORDERED: PROZAC PO SCH ×2 (09:00)
[2016-03-19] MEDS: NEURONTIN PO SCH ×3 (09:03→17:39)
[2016-03-19] MEDS: POTASSIUM CHLORIDE 20 MEQ/SWI 100 ML IV SCH ×2 (13:04→15:55)
[2016-03-19] MEDS: LYRICA PO SCH ×2 (13:05→20:50)
[2016-03-19] MEDS: PROZAC PO SCH ×2 (13:05→13:06)
--- NOTE | 2016-03-19 14:10 | Diag Imaging Result Document ---
PROCEDURE NAME: GASTRIC EMPTYING - 03/19/2016 GASTRIC EMPTYING EXAM: COMPARISON: None. FINDINGS: 530 uCi of labeled solid food was ingested. The T-1/2 of gastric emptying is 134 minutes. This is moderately delayed. IMPRESSION: Moderately delayed gastric emptying rate compatible with gastroparesis.
[2016-03-19] MEDS: SODIUM CHLORIDE 0.9% INJ PRN ×2 (15:56→20:48)
--- NOTE | 2016-03-19 16:40 | PROGRESS NOTE ---
DATE: 03/19/2016 SUBJECTIVE: Patient is complaining of mild abdominal pain, and nausea, and vomiting after she tried some clear liquid diet. OBJECTIVE: Vital Signs: Temperature 98.1 degrees, heart rate 86, respiratory rate 16, blood pressure 171/68, O2 saturation 95% on room air. General Examination: This is a chronically ill- looking, 65-year-old female lying in bed, in no acute distress. HEENT: Head is normocephalic and atraumatic. Anicteric sclerae and pale conjunctivae. Mucous membranes moist. Neck: Supple. No JVD noted. No carotid bruit. No lymphadenopathy. No thyromegaly. Cardiovascular: S1, S2 heard. No murmurs, gallops, or rubs. Regular rate and rhythm. Respiratory: Clear bilaterally to auscultation. No work of breathing or using accessory muscles. Abdomen: Soft, mildly tender to palpation in the epigastric area. Bowel sounds present. No organomegaly. Extremities: No clubbing, cyanosis, or edema. Peripheral pulses present in both legs. Neurological: Patient alert and oriented x3. Moves all 4 extremities. LABORATORY DATA: White cell count 9.12, hemoglobin 10.7, hematocrit 31.3, platelets 242,000. BMP unremarkable except mild hypokalemia at 3.3. ASSESSMENT AND PLAN: 1. Intractable nausea and vomiting. The patient had a gastric emptying study which confirmed this mild gastroparesis. Patient currently is receiving Phenergan and ondansetron. At this time, I am going to stop Zofran and start Reglan before meals and also at bedtime. The patient just after coming from a gastric emptying study started to try some liquid diet but she is really hurting a lot. Gastroenterology has been consulted, so they will plan to do an endoscopy while this patient is here in the hospital. 2. For diabetes and high blood pressure, the condition has been controlled and we will continue with the same management.
[2016-03-19] MEDS: SODIUM CHLORIDE 0.9% INJ SCH (17:41)
[2016-03-19] MEDS: PROTONIX IV SCH (17:41)
[2016-03-19] MEDS: NS 1,000 ML IV SCH (17:49)
[2016-03-19] MEDS: ZOFRAN IV PRN ×2 (17:57→23:59)
[2016-03-19] MEDS ORDERED: DEMEROL IV PRN (18:46)
[2016-03-19] MEDS: REGLAN IV SCH ×2 (19:16→23:57)
[2016-03-19] MEDS: AMBIEN PO PRN (20:50)
[2016-03-19] MEDS: APRESOLINE IV PRN (20:51)
--- NOTE | 2016-03-19 23:33 | CONSULTATION ---
DATE OF CONSULTATION: 03/19/2016 REFERRING PHYSICIAN: Charles Hare MD PRIMARY PROVIDER: Jacqueline Infante, nurse practitioner. INDICATION FOR CONSULTATION: 1. Nausea with vomiting. 2. Abdominal pain. 3. Leukocytosis. HISTORY OF PRESENT ILLNESS: The patient is a 65-year-old white female who presented to [facility] on 03/15/2016 with intractable nausea with vomiting, right lower quadrant pain and diarrhea. She now describes diffuse abdominal pain, nausea with vomiting and diarrhea. She notes a history of chronic constipation but is concerned because she is having increased stool frequency. She had similar presentations on 09/28/2012 and 09/03/2015. In 2012 she was found to have a resistant urinary tract infection. She notes that the symptoms improved after she received treatment. In August 2015 she was thought to have had a reaction to [place] as well as recurrence of urinary tract infection. It should be noted that the patient presented with diarrhea but her CT scan showed constipation with a fecal impaction on 09/23/2015. The patient states that she was discharged home feeling better. However approximately 3 weeks later she had the same symptoms, presented to the emergency room with right lower quadrant, right flank pain. Her CT scan showed interval improvement in constipation with no acute abdominal disease. She was discharged to home. She states that she continued to have symptoms but they have become progressively worse to the point that she "couldn't stand it anymore." She presented to the emergency room on 03/15/2016. This time her CT scan reveals a significant change in the orientation of her right kidney such that was horizontal as opposed to vertical consistent with the diagnosis of nephroptosis. In addition, there was diverticulosis. Of note, her lactate level was elevated as was her white blood cell count. On CT angio she had no evidence of acute disease. Clinically over the last 3 days she has failed to improve with Protonix, Reglan and a GI cocktail. After discussing the case with Dr. Hare, a gastric emptying study was ordered. It showed mild gastroparesis even while the patient was receiving IV Reglan. We are asked to participate in her care. PAST MEDICAL HISTORY: 1. Diabetes. 2. Hypertension. 3. Hyperlipidemia. 4. Hypothyroidism. 5. GERD. 6. Peripheral neuropathy. 7. Chronic pain. 8. Constipation. 9. Chronic narcotic use. PAST SURGICAL HISTORY: 1. Back surgeries x7. 2. Neck surgery x2. 3. Cholecystectomy. 4. Hysterectomy. 5. Bilateral oophorectomy. 6. Appendectomy. 7. Bladder surgery. SOCIAL HISTORY: She denies alcohol, tobacco or illicit drug use. She reports that she only takes pain medicines that have been prescribed. MEDICATION ALLERGIES: 1. FLEXERIL. 2. DILAUDID. 3. MORPHINE. HOME MEDICATIONS: 1. Lyrica. 2. Methocarbamol. 3. Trazodone. 4. Allopurinol. 5. Zanaflex. 6. Paxil. 7. Hydroxyzine. 8. Niacin. 9. Movantik. 10. Lopid. 11. Tradjenta. 12. Prilosec. 13. Zocor. REVIEW OF SYSTEMS: Remarkable for right-sided abdominal pain primarily in the right flank that radiates into the right lower quadrant, nausea with vomiting and increased stool frequency. She denies melena and hematochezia. She reports that her pain is a crampy spasm-like pain that is gnawing and constant. It increases immediately prior to defecation. Post defecation there is a temporary relief with immediate recurrence. FAMILY HISTORY: Remarkable that her father had coronary artery disease and possible myocardial infarction in his 50s. He from lung cancer at age 63. She has a sister with ovarian cancer. One brother of myocardial infarction at 34. One brother of lung cancer at 38. Her mother at 80 secondary to intracranial bleed. PHYSICAL EXAM: General: She is an ill-appearing white female who was actively regurgitating into a bedside tub. Vital signs: Her blood pressure is 212/109, pulse of 108, respiration 19, temperature of 98.2 degrees. HEENT: Notable for pale conjunctivae. Her sclerae are anicteric. Oropharyngeal mucosal membranes are moist. Pulmonary: Lungs are clear to auscultation with normal expiratory effort. Cardiovascular Exam: Reveals a tachycardia with a regular rhythm. Abdominal Exam: Reveals normoactive bowel sounds. The abdomen is soft but diffusely tender greatest in the right upper and lower abdomen. There is no rebound or guarding. Extremities: Bilaterally are negative for cyanosis, clubbing, or edema. OBJECTIVE DATA: Reveals a hemoglobin of 10.1 with hematocrit of 31.3 and a white count of 9.12. She has 242,000 platelets. Sodium is 138, potassium 3.3, chloride 100, CO2 24, BUN 19, creatinine 0.8 with a glucose of 155. Calcium is 8.8. On 03/17/2016 her total bilirubin was 0.50, AST 27, ALT 19, alkaline phosphatase 79, phosphorus 3.1, total protein 6.5 and albumin 3.7. On 03/15/2016 her plasma lactate reached a level of 3.8. IMPRESSION: 1. Abdominal pain. 2. Nephroptosis. 3. Gastroparesis. 4. Nausea with vomiting. 5. Diarrhea. 6. Known GERD. 7. Chronic narcotic use. RECOMMENDATION: 1. From a GI perspective, I recommend beginning with a trial of Bentyl 10 mg 4 times a day. 2. Continue Protonix 40 mg once daily. However, if the vomiting persists she may require increasing the dose to 40 mg twice a day. 3. I agree with a trial of Carafate suspension to see if that will improve her symptoms. 4. She may benefit from erythromycin 125 mg for before meals and at bedtime. This is to treat her presumed gastroparesis. 5. I recommend Urology consult with in the morning. 6. I would discontinue Movantik and give a trial of Linzess pending endoscopic evaluation. 7. Additional recommendations to follow. 8. Please note I did not discuss endoscopy with the patient as she had just received pain medications. I will discuss endoscopic intervention with her on 03/20/2016.
[2016-03-20] MEDS: CARAFATE LIQUID PO SCH ×4 (01:36→23:47)
[2016-03-20] MEDS: ROBAXIN PO SCH ×6 (01:37→23:47)
[2016-03-20] MEDS: BENTYL PO SCH ×5 (01:37→23:47)
[2016-03-20] MEDS: DESYREL PO PRN (01:43)
[2016-03-20] MEDS: SODIUM CHLORIDE 0.9% INJ PRN ×3 (01:46→14:01)
[2016-03-20] MEDS: PHENERGAN IV PRN ×3 (01:46→13:58)
[2016-03-20] MEDS: VASOTEC IV SCH ×2 (03:07→17:42)
[2016-03-20] MEDS: DEMEROL IV PRN ×5 (04:30→19:13)
[2016-03-20] MEDS: ZOFRAN IV PRN ×3 (04:30→19:13)
[2016-03-20] MEDS: HUMULIN R SUBQ SCH ×4 (06:20→23:41)
[2016-03-20] MEDS: NS 1,000 ML IV SCH ×3 (06:22→23:39)
[2016-03-20] MEDS: REGLAN IV SCH ×4 (06:24→23:47)
[2016-03-20] MEDS: MOVANTIK PO SCH (06:26)
[2016-03-20] MEDS: PROZAC PO SCH ×2 (08:27)
[2016-03-20] MEDS: LYRICA PO SCH ×2 (08:27→23:47)
[2016-03-20] MEDS: NEURONTIN PO SCH ×3 (08:27→17:43)
[2016-03-20] MEDS: APRESOLINE IV PRN (08:28)
[2016-03-20 09:03] LABS: MANUAL DIFF NEEDED? NO
[2016-03-20 09:05] LABS: BASO% 0.1 % (0.0-0.8); EOS# 0.04 X1000 (0.0-0.7); EOS% 0.4 % (0.0-10.0); HEMATOCRIT 35.2 % (37.0-47.0); HEMOGLOBIN 12.5 g/dL (12.0-16.0); IMM GRAN# 0.12 X1000 (0.0-0.04); IMM GRAN% 1.1 % (0.0-0.5); LYMPH# 1.96 X1000 (1.2-3.4); LYMPH% 17.3 % (20.5-51.1); MCH 29.6 PG (27-31); MCHC 35.5 g/dL (33-37); MCV 83.4 FL (81-99); MONO# 0.81 X1000 (0.11-0.59); MONO% 7.2 % (1.7-9.3); MPV 10.4 FL (7.4-10.4); NEUT% 73.9 % (42.2-75.2); PLT 284 X1000 (130-400); RBC 4.22 XMIL (4.2-5.4)
[2016-03-20 09:18] LABS: AGAP 17; BUN 12 mg/dL (8-22); CALCIUM 8.9 mg/dL (8.8-10.2); CHLORIDE 98 mmol/L (98-107); COSMO 278; POTASSIUM 3.2 mmol/L (3.5-5.1); SODIUM 138 mmol/L (136-145); TCO2 23 mmol/L (25-35)
--- NOTE | 2016-03-20 10:50 | PROGRESS NOTE ---
DATE: 03/20/2016 SUBJECTIVE: Patient reports still having some abdominal pain in the epigastric area. She also is feeling sick. She is still NPO. OBJECTIVE: Vital Signs: Temperature 98.7 degrees. Heart rate 103. Respiratory rate 22. Blood pressure 186/100. O2 saturation 96% on room air. General Examination: This is a chronically ill- looking, 65-year-old female lying in bed, in no acute distress. HEENT: Head is normocephalic, atraumatic. Anicteric sclerae and pale conjunctivae. Mucous membranes dry. Neck: Supple. No JVD noted. No carotid bruits. No lymphadenopathy. No thyromegaly. Cardiovascular: S1, S2 heard. No murmurs, gallops, or rubs. Regular rate and rhythm. Respiratory: Clear bilaterally to auscultation. No work of breathing or using accessory muscles. Abdomen: Soft. Diffuse tenderness to palpation in all the abdomen. There are no signs of peritoneal irritation. Bowel sounds present and hyperactive. Extremities: No clubbing, cyanosis, or edema. Peripheral pulses present in both legs. Neurological: Patient alert and oriented x3, able to move all 4 extremities. Cranial nerves 2-12 grossly normal. LABORATORY DATA: White cell count 11.32. Hemoglobin 12.5. Hematocrit 35.2. Platelets 284,000. BMP unremarkable except mild hypokalemia at 3.3. ASSESSMENT AND PLAN: 1. Intractable nausea, vomiting. The patient had gastric emptying studies done that show some gastroparesis and she was started yesterday on Reglan 5 mg q.6 hours. Patient still feeling sick since yesterday after she tried to get some liquids . The patient has been evaluated by Dr. Morales and she is going to get an upper endoscopy tomorrow. We will follow recommendations. 2. Diabetes mellitus type 2. We will continue with sliding scale insulin. 3. Hypertension. We have added amlodipine 10 mg 1 tablet p.o. daily to her current treatment because blood pressure is kind of high, in the range of 180 and 190.
[2016-03-20] MEDS ORDERED: GOLYTELY PO ONE (14:00)
[2016-03-20] MEDS: NORVASC PO SCH (14:01)
[2016-03-20] MEDS: PROTONIX IV SCH (17:11)
[2016-03-20] MEDS: SODIUM CHLORIDE 0.9% INJ SCH (17:11)
[2016-03-21] MEDS: AMBIEN PO PRN ×2 (00:33→20:27)
[2016-03-21] MEDS: ZOFRAN IV PRN ×3 (00:46→20:20)
[2016-03-21] MEDS: DEMEROL IV PRN ×3 (01:34→17:42)
[2016-03-21] MEDS: ROBAXIN PO SCH ×6 (01:35→20:19)
[2016-03-21] MEDS: CARAFATE LIQUID PO SCH ×4 (04:10→20:19)
[2016-03-21] MEDS: VASOTEC IV SCH ×2 (04:11→15:15)
[2016-03-21 06:39] LABS: MANUAL DIFF NEEDED? NO
[2016-03-21] MEDS: REGLAN IV SCH ×3 (06:49→17:47)
[2016-03-21] MEDS: NS 1,000 ML IV SCH ×2 (06:51→15:04)
[2016-03-21] MEDS: MOVANTIK PO SCH (06:51)
[2016-03-21] MEDS: HUMULIN R SUBQ SCH ×4 (06:53→23:41)
[2016-03-21 06:55] LABS: BASO% 0.2 % (0.0-0.8); EOS# 0.21 X1000 (0.0-0.7); EOS% 2.1 % (0.0-10.0); HEMATOCRIT 31.3 % (37.0-47.0); HEMOGLOBIN 10.8 g/dL (12.0-16.0); IMM GRAN# 0.06 X1000 (0.0-0.04); IMM GRAN% 0.6 % (0.0-0.5); LYMPH# 3.01 X1000 (1.2-3.4); LYMPH% 29.5 % (20.5-51.1); MCH 29.2 PG (27-31); MCHC 34.5 g/dL (33-37); MCV 84.6 FL (81-99); MONO# 0.79 X1000 (0.11-0.59); MONO% 7.8 % (1.7-9.3); MPV 10.8 FL (7.4-10.4); NEUT% 59.8 % (42.2-75.2); PLT 261 X1000 (130-400)
[2016-03-21 07:07] LABS: AGAP 13; BUN 8 mg/dL (8-22); CALCIUM 8.1 mg/dL (8.8-10.2); CHLORIDE 102 mmol/L (98-107); COSMO 277; POTASSIUM 2.9 mmol/L (3.5-5.1); SODIUM 139 mmol/L (136-145); TCO2 24 mmol/L (25-35)
[2016-03-21] MEDS ORDERED: POTASSIUM CHLORIDE 60 MEQ in NS 500 ML IV ONE (09:23)
[2016-03-21] MEDS: NORVASC PO SCH (10:08)
[2016-03-21] MEDS: LYRICA PO SCH ×2 (10:08→20:20)
[2016-03-21] MEDS: NEURONTIN PO SCH ×3 (10:08→17:24)
[2016-03-21] MEDS: PROZAC PO SCH ×2 (10:08)
[2016-03-21] MEDS: BENTYL PO SCH ×4 (10:09→20:20)
[2016-03-21] MEDS: PROTONIX IV SCH (15:15)
[2016-03-21] MEDS: SODIUM CHLORIDE 0.9% INJ SCH (15:15)
[2016-03-21] MEDS ORDERED: ZOFRAN ONE (15:54)
[2016-03-21] MEDS ORDERED: ZOFRAN IV ONE (15:58)
--- NOTE | 2016-03-21 16:02 | PROGRESS NOTE ---
DATE: 03/21/2016 SUBJECTIVE: Patient reports feeling still sick. Denies abdominal pain at the time of examination. OBJECTIVE: Vital Signs: Temperature 98.3 degrees, heart rate 71, respiratory rate 16, blood pressure 167/77, O2 saturation 94% on room air. General Examination: This is a chronically ill- looking, 65-year-old female, lying in bed in no acute distress. HEENT: Head is normocephalic, atraumatic. Anicteric sclerae and pale conjunctivae. Mucous membranes moist. Neck: Supple. No JVD noted. No carotid bruits. No lymphadenopathy. No thyromegaly. Cardiovascular exam: S1, S2 heard. No murmurs, gallops, or rubs. Regular rate and rhythm. Respiratory exam: Clear bilaterally to auscultation. No work of breathing or using accessory muscles. Abdomen: Soft. Diffuse tenderness to the patient still present, but there are no signs of peritoneal irritation. Bowel sounds present and hyperactive. Extremities: No clubbing, cyanosis, or edema. Peripheral pulses present in both legs. Neurological exam: Patient is alert and oriented x3. Able to move 4 extremities. Cranial nerves 2-12 grossly normal. LABORATORY DATA: White cell count 10.1, hemoglobin 10.8, hematocrit 31.3, platelets 261. The BMP is unremarkable, except potassium 2.9. ASSESSMENT AND PLAN: 1. Intractable nausea and vomiting. The patient is still feeling nauseated, but a little bit less because she is receiving Reglan 5 mg IV q. 6 hours. Patient is going to have endoscopy and colonoscopy today by Dr. Morales, help appreciated. Will see what this exam shows. 2. Diabetes mellitus type 2. We will continue with sliding scale insulin. 3. Hypertension. We have amlodipine 10 mg and blood pressure is developing much better today. We will continue with the same treatment.
[2016-03-21] MEDS ORDERED: MYLICON DROPS (DOSE) MISC ONE (16:45)
[2016-03-21] MEDS ORDERED: FENTANYL ONE (17:23)
[2016-03-21] MEDS ORDERED: DIPRIVAN 1% ONE (17:23)
--- NOTE | 2016-03-21 20:33 | CONSULTATION ---
DATE OF CONSULTATION: 03/20/2016 CONSULTING PHYSICIAN: Hailey Morales M.D., Gastroenterology. REASON FOR CONSULTATION: Right hydronephrosis, nephroptosis. HISTORY OF PRESENT ILLNESS: This 65-year-old female is known to me secondary to history of recurrent UTIs and dysuria. She was seen by me approximately 2 months ago in clinic and underwent office cystoscopy. She presented to the emergency room with nausea, vomiting, diarrhea and right flank pain as well as abdominal pain. She was evaluated by Dr. Morales and most recently underwent EGD and colonoscopy on 03/21/2016. The patient reports intermittent right colicky pain now for several years associated with nausea and vomiting. She has had several CT scans in the past which have not revealed abnormalities in the kidney including a CT scan from September 2015. When she underwent CT abdomen and pelvis with IV contrast on 03/14/2016 it revealed right renal ptosis with significant change in the orientation of the kidney. At that time patient's family states she was having significant pain, nausea and vomiting. The patient denies currently gross hematuria, fevers or chills. PAST MEDICAL HISTORY: 1. Diabetes mellitus. 2. Hypertension. 3. Hyperlipidemia. 4. GERD. 5. Hypothyroidism. 6. Peripheral neuropathy. 7. Chronic pain. 8. Constipation. 9. Chronic UTIs. PAST SURGICAL HISTORY: 1. Multiple back surgeries. 2. Neck surgery. 3. Cholecystectomy. 4. Hysterectomy. 5. Appendectomy. 6. Bilateral oophorectomy. 7. Bladder suspension. ALLERGIES: Dilaudid, morphine and Flexeril. HOME MEDICATIONS: Lyrica, methocarbamol, trazodone, allopurinol, Zanaflex, Paxil, hydroxyzine, niacin, Lopid, Tradjenta, Prilosec and Zocor. SOCIAL HISTORY: Denies tobacco, alcohol or drug use. REVIEW OF SYSTEMS: Reviewed 12 systems and is negative with exception of the HPI. FAMILY HISTORY: No evidence of malignancies. PHYSICAL EXAMINATION: Vital Signs: T 98.3 degrees, P 71, BP 167/77. General: No acute distress. HEENT: Normocephalic, atraumatic. Cardiovascular: Regular rate and rhythm. Pulmonary: Bilateral breath sounds. Abdomen: Tender to palpation over the right flank pain. Genitourinary: Bladder is nontender to palpation. Lymphatic: No groin lymphadenopathy. Dermatologic: No obvious skin rashes. Neurologic: Alert and oriented x3. Psychiatric: Appropriate mood and affect. PERTINENT LABORATORY DATA: White cell count of 10,000, creatinine 0.7. Urinalysis on 03/14/2016 negative for blood or bacteria. PERTINENT IMAGES: CT chest, abdomen and pelvis on 03/14/2016 showing significant right nephroptosis. She had mesenteric arteriogram on 03/15/2016 which showed that the kidney has returned to a normal anatomic orientation. ASSESSMENT AND PLAN: A 65-year-old female with intermittent right flank pain, nausea, vomiting, who was noted to have a droopy kidney by CT scan while having pain episode. I have discussed with the patient that there are certainly other reasons for abdominal and flank pain but given the CT findings which I reviewed personally nephroptosis can cause intermittent colicky flank pain associated with nausea and vomiting. I have discussed with the patient that her options would be observation versus consideration of nephropexy. She feels strongly about intervention. I have discussed with her that she will need to have her GI evaluation completed and await pathology results from a reported polyp that was biopsied obtained by Dr. Morales. I discussed with the patient and her family briefly the logistics and risks of surgery which would include bleeding, infection, injury to adjacent structures, chance of kidney drooping again and most importantly failure to relieve the pain. She voiced understanding. PLAN: 1. No immediate intervention needed for the drooping kidney. 2. I agree with completion of GI evaluation. 3. I will see patient on an outpatient basis after discharge at which time we will set her up for robotic nephropexy. I appreciate Dr. Morales's involvement in consultation. [facility]
[2016-03-22] MEDS: DEMEROL IV PRN ×4 (00:08→20:07)
[2016-03-22] MEDS: ROBAXIN PO SCH ×6 (00:09→20:06)
[2016-03-22] MEDS: REGLAN IV SCH ×4 (00:09→17:59)
[2016-03-22] MEDS: PROTONIX IV SCH ×2 (02:06→14:22)
[2016-03-22] MEDS: CARAFATE LIQUID PO SCH ×4 (02:06→20:07)
[2016-03-22] MEDS: VASOTEC IV SCH ×3 (02:06→14:22)
[2016-03-22] MEDS: SODIUM CHLORIDE 0.9% INJ SCH ×2 (02:06→14:23)
[2016-03-22] MEDS: NS 1,000 ML IV SCH ×3 (05:03→14:13)
[2016-03-22] MEDS: MOVANTIK PO SCH (06:05)
[2016-03-22] MEDS: HUMULIN R SUBQ SCH ×4 (06:33→21:40)
[2016-03-22 07:13] LABS: MANUAL DIFF NEEDED? NO
[2016-03-22 07:26] LABS: BASO% 0.2 % (0.0-0.8); EOS# 0.22 X1000 (0.0-0.7); EOS% 2.1 % (0.0-10.0); HEMATOCRIT 30.8 % (37.0-47.0); HEMOGLOBIN 10.8 g/dL (12.0-16.0); IMM GRAN# 0.06 X1000 (0.0-0.04); IMM GRAN% 0.6 % (0.0-0.5); LYMPH# 2.45 X1000 (1.2-3.4); LYMPH% 23.7 % (20.5-51.1); MCH 29.4 PG (27-31); MCHC 35.1 g/dL (33-37); MCV 83.9 FL (81-99); MONO# 0.87 X1000 (0.11-0.59); MONO% 8.4 % (1.7-9.3); MPV 11.2 FL (7.4-10.4); PLT 216 X1000 (130-400); RBC 3.67 XMIL (4.2-5.4)
[2016-03-22 07:53] LABS: AGAP 12; BUN 7 mg/dL (8-22); CALCIUM 7.9 mg/dL (8.8-10.2); CHLORIDE 100 mmol/L (98-107); COSMO 272; POTASSIUM 2.9 mmol/L (3.5-5.1); SODIUM 137 mmol/L (136-145); TCO2 25 mmol/L (25-35)
--- NOTE | 2016-03-22 09:36 | OPERATIVE NOTE ---
PROCEDURE DATE: 03/22/2015 REFERRING PHYSICIAN: Damien Larry MD PRIMARY PROVIDER: Jacqueline Newton NP INDICATION FOR PROCEDURE: 1. Nausea with vomiting. 2. Abdominal pain. 3. Diarrhea. 4. Nephroptosis on CT scan. PROCEDURE PERFORMED: Colonoscopy with polypectomy. CONSENT: Informed consent was obtained from the patient prior to the procedure. The risks, benefits, and alternatives were discussed. MEDICATION: The patient received monitored anesthesia care. PERFORMING PHYSICIAN: Hailey Morales MD ASSISTANTS: 1. ST Vic[facility] 2. Ally Hennessy RN 3. Vj Thomas CRNA 4. Danis Lemos MD (anesthesia) COMPLICATIONS: There were no complications. ESTIMATED BLOOD LOSS: Less than 1 mL. SPECIMENS REMOVED: 1. Random colon. 2. Rectal polyp x1. CECAL INTUBATION TIME: Seven minutes. WITHDRAWAL TIME: Ten minutes. PREP QUALITY: Inadequate to screen for colon polyps but sufficient to rule out large masses and bleeding sources. FINDINGS: After the EGD was performed, the patient was repositioned. The colonoscope was inserted to the cecum. More than 70% of the cecal base was coated with stool. Upon withdrawal, approximately 30% to 40% of the colonic lumen was coated with stool. The colonic mucosa appeared grossly normal throughout the colon. There were scattered diverticulosis beginning in the transverse colon, extending to the rectosigmoid colon with a predominance in the sigmoid colon. The lumen was widely patent with no evidence of inflammation or edema. In the rectum, there were grade 2 internal hemorrhoids. In the upper rectum. In the lower rectum, there was a 10-20 mm rectal polyp that was removed using snare cautery. There were medium external hemorrhoids on retroflexed view. After the exam was complete, the lumen was decompressed and the scope was removed without incident. IMPRESSION: 1. Rectal polyp. 2. Diverticulosis. 3. Poor prep. 4. Internal hemorrhoids, grade 2. 5. Medium external hemorrhoids. RECOMMENDATION: 1. Await pathology results. 2. Await biopsy results. 3. There were no findings on today's exam to explain her symptoms. However, it is possible that this her symptoms are consistent with irritable bowel syndrome. Depending on her clinical response to treatment of the inflammation in her stomach, one can consider a trial of Bentyl 10 mg 4 times a day. 4. This exam was inadequate to screen for colon polyps. Therefore, she should have a repeat colonoscopy in 6-9 months. 5. We will defer to Dr. Suggs for Urology regarding her nephroptosis. 6. We will have the patient return to clinic in 3-4 weeks to assess interval progress.
--- NOTE | 2016-03-22 09:36 | OPERATIVE NOTE ---
PROCEDURE DATE: 03/21/2016 REFERRING PHYSICIAN: Dr. Damien Larry. PRIMARY PROVIDER: Jacqueline Newton, Nurse Practitioner. INDICATION FOR PROCEDURE: 1. Nausea with vomiting. 2. Diarrhea. 3. Gastroesophageal reflux disease. 4. Abdominal pain. 5. Recently diagnosed gastroparesis. PROCEDURE PERFORMED: Esophagogastroduodenoscopy. CONSENT: Informed consent was obtained from the patient prior to the procedure. The risks, benefits, and alternatives were discussed. MEDICATION: The patient received monitored anesthesia care. PERFORMING PHYSICIAN: Hailey Morales MD. ASSISTANTS: 1. [facility]. 2. Ally Hennessy RN. 3. Vj Thomas CRNA. 4. Danis Lemos MD (anesthesia). COMPLICATIONS: There were no complications. ESTIMATED BLOOD LOSS: Less than 1-2 mL. SPECIMENS REMOVED: 1. Duodenal biopsy. 2. Gastric biopsies. FINDINGS: After sedation was achieved, the upper endoscope was inserted to the 2nd portion of the duodenum. The hypopharynx appeared endoscopically normal. There was moderate resistance at the upper esophageal sphincter suggestive of cricopharyngeal achalasia. The upper esophageal sphincter was dilated with passage of the scope. In the tubular esophagus, there was grade C erosive esophagitis. The GE junction was irregular but there were no defined tongues of Arrington's at 40 cm. The esophageal veins were prominent and, therefore, I could not rule out esophageal varices. There was a hiatal hernia that spanned from 40-45 cm. There was fluid in the fundus of the stomach consistent with gastroparesis. There was severe erosive gastritis in the body and the antrum. There was mild gastritis in the fundus on a retroflexed view. Throughout the gastric lumen, there were nonbleeding AVMs. The pylorus appeared endoscopically normal. In the duodenal bulb, there was severe erosive duodenitis with polypoid effect. Multiple biopsies were taken from the duodenum. Additional biopsies were taken from the gastric mucosa. After the exam was complete, the lumen was decompressed and the scope was removed without incident. IMPRESSION: 1. 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 2. Grade C erosive esophagitis. 3. Prominent esophageal veins. 4. Irregular gastroesophageal junction at 40 cm. 5. Hiatal hernia. 6. Severe erosive gastritis. 7. Nonbleeding gastric arteriovenous malformations. 8. Severe erosive duodenitis. RECOMMENDATIONS: 1. The patient is currently receiving Protonix 40 mg IV q.12 hours. I would continue this. 2. Add Carafate 1 g p.o. 4 times a day. 3. Continue Reglan for treatment of her gastroparesis which will also help her gastroesophageal reflux disease. 4. I would obtain abdominal ultrasound to assess the esophageal veins. 5. Await biopsy results. 6. Continue gastroparesis diet. We will proceed with colonoscopy as previously scheduled.
[2016-03-22] MEDS: PROZAC PO SCH ×2 (09:52→09:53)
[2016-03-22] MEDS: BENTYL PO SCH ×4 (09:52→20:07)
[2016-03-22] MEDS: LYRICA PO SCH ×2 (09:52→20:07)
[2016-03-22] MEDS: NORVASC PO SCH (09:52)
[2016-03-22] MEDS: NEURONTIN PO SCH ×3 (09:53→17:09)
[2016-03-22] MEDS ORDERED: ANESTHESIA PB SET 88 IN 5742 ONE (10:07)
[2016-03-22] MEDS ORDERED: XYLOCAINE-MPF 2% ONE (10:07)
[2016-03-22] MEDS ORDERED: LR 1,000 ML ONE (10:07)
[2016-03-22] MEDS ORDERED: EXTENSION SET 32 IN 4522 ONE (10:07)
[2016-03-22] MEDS: ZOFRAN IV PRN (10:48)
[2016-03-22] MEDS: POTASSIUM CHLORIDE 60 MEQ in NS 500 ML IV SCH ×2 (14:12→19:04)
--- NOTE | 2016-03-22 17:45 | PROGRESS NOTE ---
DATE: 03/22/2016 SUBJECTIVE: Patient reports feeling better today, not vomiting, although she was feeling a little bit sick. She denies any fever or chills. OBJECTIVE: Vital Signs: Temperature 98.8 degrees, heart rate 75, respiratory rate 19, blood pressure 145/60, O2 saturation 96% on room air. General Examination: This is a chronically ill- looking, 65-year-old, female, lying in bed, in no acute distress. HEENT: Head is normocephalic, atraumatic. Neck: Supple. No JVD noted. No carotid bruits. Cardiovascular: S1, S2 heard. No murmurs, gallops, or rubs. Regular rate and rhythm. Respiratory: Clear bilaterally to auscultation. No work of breathing or use of accessory muscles. Abdomen: Soft, nontender to palpation. Bowel sounds present. No organomegaly. Extremities: No clubbing, cyanosis, or edema. Peripheral pulses present in both legs. Neurological Examination: Patient is alert and oriented x3. Moves 4 extremities. LABORATORY DATA: White cell count 10.34, hemoglobin 10.8, hematocrit 30.8, platelets 216,000. BMP unremarkable except potassium 2.9. ASSESSMENT AND PLAN: 1. Intractable nausea and vomiting. This condition is resolving. The patient has been evaluated by Dr. Morales. The endoscopy and colonoscopy are unremarkable. We will continue with the same management. 2. We will see how she does with Reglan that we are giving to her q. 6 hours. 3. Diabetes mellitus type 2. We will continue with sliding scale insulin. 4. Hypertension. After we added amlodipine 10 mg p.o. daily blood pressure is definitely much better controlled.
[2016-03-22] MEDS: AMBIEN PO PRN (21:32)
[2016-03-22] MEDS: DESYREL PO PRN (23:40)
[2016-03-23] MEDS: DEMEROL IV PRN (01:22)
[2016-03-23] MEDS: ROBAXIN PO SCH ×3 (01:22→08:31)
[2016-03-23] MEDS: CARAFATE LIQUID PO SCH ×2 (01:22→08:32)
[2016-03-23] MEDS: REGLAN IV SCH ×2 (01:22→06:10)
[2016-03-23] MEDS: NS 1,000 ML IV SCH ×2 (01:23→06:10)
[2016-03-23] MEDS: PROTONIX IV SCH (03:54)
[2016-03-23] MEDS: VASOTEC IV SCH (03:54)
[2016-03-23] MEDS: SODIUM CHLORIDE 0.9% INJ SCH (03:54)
[2016-03-23] MEDS: MOVANTIK PO SCH (06:10)
[2016-03-23] MEDS: HUMULIN R SUBQ SCH (06:24)
[2016-03-23 06:39] LABS: MANUAL DIFF NEEDED? NO
[2016-03-23 06:45] LABS: BASO% 0.2 % (0.0-0.8); EOS# 0.26 X1000 (0.0-0.7); EOS% 2.9 % (0.0-10.0); HEMATOCRIT 31.8 % (37.0-47.0); HEMOGLOBIN 10.9 g/dL (12.0-16.0); IMM GRAN# 0.05 X1000 (0.0-0.04); IMM GRAN% 0.6 % (0.0-0.5); LYMPH# 2.82 X1000 (1.2-3.4); LYMPH% 31.6 % (20.5-51.1); MCH 29.4 PG (27-31); MCHC 34.3 g/dL (33-37); MCV 85.7 FL (81-99); MONO# 0.76 X1000 (0.11-0.59); MONO% 8.5 % (1.7-9.3); NEUT% 56.2 % (42.2-75.2); PLT 210 X1000 (130-400); RBC 3.71 XMIL (4.2-5.4)
[2016-03-23 07:07] LABS: AGAP 11; BUN 7 mg/dL (8-22); CALCIUM 8.6 mg/dL (8.8-10.2); CHLORIDE 105 mmol/L (98-107); COSMO 282; SODIUM 142 mmol/L (136-145); TCO2 26 mmol/L (25-35)
[2016-03-23] MEDS: PROZAC PO SCH ×2 (08:31)
[2016-03-23] MEDS: BENTYL PO SCH (08:31)
[2016-03-23] MEDS: LYRICA PO SCH (08:31)
[2016-03-23] MEDS: NORVASC PO SCH (08:32)
[2016-03-23] MEDS: NEURONTIN PO SCH (08:32)
[2016-03-23 09:00] VITALS: BP 175/76
--- NOTE | 2016-03-23 15:49 | DISCHARGE SUMMARY ---
ADMISSION DATE: 03/15/2016 DISCHARGE DATE: 03/23/2016 DISCHARGE DIAGNOSES: 1. Newly diagnosed gastroparesis. 2. Nephro of the right kidney. 3. Diabetes mellitus. 4. Intractable nausea and vomiting, resolved. 5. Hypertension. 6. Chronic pain disorder. PROCEDURES: CT of the abdomen and pelvis showed significant change the right kidney with no evidence of complication. Diverticulosis coli. Mesenteric arteriogram showed no significant arterial abnormality. Head CT showed no evidence of acute intracranial disease. Gastric emptying nuclear medicine showed moderately delayed gastric emptying rate compatible with gastroparesis. Upper endoscopy showed erosive esophagitis, hiatal hernia, erosive gastritis, non-bleeding AVMs, and severe erosive duodenitis. Colonoscopy showed rectal polyp. Poor preparation. Internal hemorrhoids. HOSPITAL COURSE: This is a 65-year-old female who presented to the emergency department complaining of nausea, vomiting, and diarrhea. She reported that she has a history of chronic abdominal pain and chronic constipation secondary to narcotic use. She reports having abdominal pain that has been intermittent on and off for the last couple of weeks. For these symptoms, she was admitted to the hospital. For this persistent nausea and vomiting, we ordered a CT scan that was basically unremarkable. For suspicion of gastroparesis, we ordered gastric emptying studies with the results as above. The patient was started on Reglan IV and she started to improve. Also, Dr. Morales considered that this patient needs an endoscopy and colonoscopy with results as above. At the time of discharge, the patient was tolerating food very well with no nausea and vomiting and mild pain. So, at this time, I think this patient is ready to go home. She will have a followup with Dr. Morales in 1-2 weeks. The patient is being discharged in stable condition. DISCHARGE PHYSICAL EXAMINATION: VITAL SIGNS: Temperature 98.6 degrees, heart rate 80, respiratory rate 18, blood pressure 175/76, O2 saturation 94% on room air. GENERAL: This is a 65- year-old female lying in bed in no acute distress. HEENT: Head is normocephalic and atraumatic. Anicteric sclerae and pale conjunctivae. NECK supple. No JVD noted. No carotid bruits. CARDIOVASCULAR: S1, S1, S2 heard. No murmurs, gallops, or rubs. Regular rate and rhythm. RESPIRATORY: Clear bilaterally to auscultation. No work of breathing or using accessory muscles. ABDOMEN is soft, nontender to palpation. Bowel sounds present. No organomegaly. EXTREMITIES: No clubbing, cyanosis, or edema. Peripheral pulses present in both legs. NEUROLOGIC: The patient is alert and oriented x3, able to move 4 extremities. Cranial nerves 2- 12 grossly normal. DISCHARGE DISPOSITION: Home to self-care. FOLLOWUP: Follow up with Dr. Morales in 1-2 weeks. Follow up with his primary care physician in 1 week. DISCHARGE MEDICATIONS: 1. Demerol 50 mg, 1 tablet p.o. every 4 hours as needed for pain. 2. Carafate 1 g q. 6 hours. 3. Trazodone 1-2 tablets p.o. at bedtime. 4. Allopurinol 300 mg 1 tablet p.o. daily. 5. Clonidine 0.1 mg 1 tablet p.o. b.i.d. 6. Fluoxetine 20 mg 1 tablet p.o. daily. 7. Gabapentin 600 mg p.o. 3 times per day. 8. Lopid 600 mg p.o. b.i.d. 9. Tradjenta 5 mg 1 tablet p.o. daily. 10. Methocarbamol 750 mg 1 tablet p.o. every 4 hours as needed. 11. Movantik 25 mg p.o. daily. 12. Niacin 500 mg 1 tablet p.o. at bedtime. 13. Omeprazole 40 mg p.o. at bedtime. 14. Percocet 1 tablet p.o. b.i.d. as needed. 15. Lyrica 75 mg 1 tablet p.o. b.i.d. 16. Zocor 40 mg 1 tablet p.o. at bedtime.
== END 2016-03-23 12:57 | disposition home health service (06) | DRG 74 ==
LOC: P.ED 18:51 → P.MEDSURG 03-15 01:13 → OBSVTOIN 03-15 14:34 → 3N 03-18 20:31
PROVIDERS: ATTEND Internal Medicine
PROC: 0DB98ZX Excision of Duodenum, Via Natural or Artificial Opening Endoscopic, Diagnostic (ICD-10-PCS; principal; 2016-03-21 16:14)
PROC: 0DB68ZX Excision of Stomach, Via Natural or Artificial Opening Endoscopic, Diagnostic (ICD-10-PCS; 2016-03-21 16:14)
PROC: 0DBP8ZZ Excision of Rectum, Via Natural or Artificial Opening Endoscopic (ICD-10-PCS; 2016-03-22)
DX: E11.43 Type 2 diabetes mellitus with diabetic autonomic (poly)neuropathy (principal); E87.2 Acidosis; E11.22 Type 2 diabetes mellitus with diabetic chronic kidney disease; K22.0 Achalasia of cardia; K31.84 Gastroparesis; K59.09 Other constipation; N28.83 Nephroptosis; E87.6 Hypokalemia; E11.42 Type 2 diabetes mellitus with diabetic polyneuropathy; K59.03 Drug induced constipation; K21.0 Gastro-esophageal reflux disease with esophagitis; K44.9 Diaphragmatic hernia without obstruction or gangrene; K29.60 Other gastritis without bleeding; K31.819 Angiodysplasia of stomach and duodenum without bleeding; K29.80 Duodenitis without bleeding; K57.30 Diverticulosis of large intestine without perforation or abscess without bleeding; K64.1 Second degree hemorrhoids; I10 Essential (primary) hypertension; E03.9 Hypothyroidism, unspecified; E78.5 Hyperlipidemia, unspecified; G89.4 Chronic pain syndrome; Z79.899 Other long term (current) drug therapy; Z98.1 Arthrodesis status; Z82.49 Family history of ischemic heart disease and other diseases of the circulatory system; Z80.1 Family history of malignant neoplasm of trachea, bronchus and lung; Z80.41 Family history of malignant neoplasm of ovary; T40.605A Adverse effect of unspecified narcotics, initial encounter
CPT/HCPCS: 36415; 70450; 74022; 74175; 74177; 78264; 80048; 80053; 81001; 81025; 82550; 82948; 83605; 83690; 83735; 84100; 84484; 85025; 85027; 85610; 85730; 86140; 87040; 87088; 88305; 88312; 88313; 93005; 94761; 96361; 96365; 96375; A9541; C9113; J0360; J1170; J1335; J1815; J1885; J2175; J2405; J2543; J2550; J2765; J3010; J3475; J3480; J7030; J7040; J7050; J7120; Q9967; S0164